=== PATIENT | female | born 1945 | race Caucasian/White ===

== ENCOUNTER → 2017-10-04 10:06 | Outpatient (CLI) | payer MEDICARE, OTHER, SELFPAY ==
--- NOTE | 2017-10-05 16:04 | PM.PFT.1 ---
Pulmonary Function Test Referral & Results Date Patient Seen: 10/04/17 Requesting provider: Deonte Lees Results: The spirometry demonstrates an FVC of 1.75 L which is 60% of predicted. The FEV1 was measured at 1.60 L which is 72% of predicted. The FEV1/FVC ratio was 91 which is 121% of predicted. Following the administration of bronchodilator there was a 32% improvement in FEF 25-75%. Lung volumes show an SVC of 2.68 L which is 95% of predicted. The diffusing capacity was measured at 14.73 which is 60% of predicted. No hemoglobin value was provided, so no correction for potential anemia could be made, if appropriate. The maximum voluntary ventilation was reduced. Interpretation: This study demonstrates moderately severe obstructive lung disease with only limited evidence of benefit following bronchodilator administration. Primary benefit was seen in small airway flow based on improvement in the FEF 25-75%. Lung volumes are normal so no evidence of restrictive lung disease There was a moderately severe reduction in diffusing capacity suggesting significant disease at the capillary alveolar level, unless patient was anemic.
== END ==
PROVIDERS: PCP Student in an Organized Health Care Education/Training Program; Visit Provider Student in an Organized Health Care Education/Training Program
DX: R06.2 Wheezing (principal)
CPT/HCPCS: 94010; 94060; 94726; 94729